=== PATIENT | female | born 1980 | race Caucasian/White ===

== ENCOUNTER 2017-08-07 21:54 | Outpatient (CLI) | payer OTHER ==
[2017-08-08] MEDS: LACTATED RINGER'S 1,000 ML IV (00:30)
== END 2017-08-08 02:08 | disposition home or self-care (01) ==
LOC: OBT 21:54 → L-D 21:55
DX: O99.342 Other mental disorders complicating pregnancy, second trimester (principal); F32.9 Major depressive disorder, single episode, unspecified; O26.892 Other specified pregnancy related conditions, second trimester; E86.0 Dehydration; O09.522 Supervision of elderly multigravida, second trimester; Z3A.22 22 weeks gestation of pregnancy
CPT/HCPCS: 96360